=== PATIENT | male | born 1990 | race African-American/Black ===

== ENCOUNTER 2016-07-11 21:23 | Emergency (ER) | payer OTHER ==
[~2016-07-11] VITALS: Ht 175.3 cm; Wt 77.3 kg
[2016-07-11 23:31] VITALS: BP 127/88
== END 2016-07-12 00:18 ==
LOC: EME 21:23 → EDBD 21:23 → EME 21:23
PROC: 0HQGXZZ Repair Left Hand Skin, External Approach (ICD-10-PCS; principal; 2016-07-11)
DX: S61.217A Laceration without foreign body of left little finger without damage to nail, initial encounter (principal); W23.0XXA Caught, crushed, jammed, or pinched between moving objects, initial encounter; Y93.67 Activity, basketball
CPT/HCPCS: 73130; 99281; 99284